=== PATIENT | female | born 1960 | race Caucasian/White ===

== ENCOUNTER 2022-01-22 15:07 | Emergency (ER) | payer OTHER, SELFPAY ==
[2022-01-22 15:15] VITALS: BP 142/66; PULSE 84; RESP 17; TEMP 36.6; O2SAT 96; BMI 24.0
--- NOTE | 2022-01-22 15:20 | DI.RAD.S_ITS ---
PROCEDURE: XR FOOT LT MIN 3V INDICATIONS: fall with foot pain lateral foot, ecchymosis TECHNIQUE: 3 views of the foot were acquired. COMPARISON: None. FINDINGS: Bones: There is a nondisplaced fracture of the base of the 5th metatarsal approximately 1.3 cm from the base. Questionable intra-articular extension. No additional fractures are noted. Joint spaces are maintained. Soft tissues: Soft tissue swelling of the lateral foot. No tibiotalar joint effusion. Achilles tendon appears normal. Small plantar fascial insertional enthesophyte. IMPRESSION: Nondisplaced proximal 5th metatarsal fracture. Dictated by: Akbar Min D.O. on 01/22/2022 at 14:47 Approved by: Akbar Min D.O. on 01/22/2022 at 14:49
--- NOTE | 2022-01-22 15:20 | ED.LOWEXIN ---
HPI - Extremity Injury (Lower) General Chief Complaint: Extremity Injury, Lower Stated Complaint: left foot injury x1 day Time Seen by Provider: 01/22/22 15:16 Source: patient Mode of arrival: Wheelchair History of Present Illness HPI Narrative: 61F nonsmoker with noncontributory medical history presents with a chief complaint of an injury to her left foot suffered yesterday. She was walking on her boat and stepped awkwardly while descending stairs and felt an immediate and significant pain over her left lateral foot. She denies any ankle knee or hip pain. She denies any numbness, tingling or weakness. Her pain is worse with ambulation and improves with rest. She denies any history of the same and is otherwise well and free of complaint. Related Data Home Medications Medication Instructions Recorded Confirmed fluoxetine 10 mg capsule 10 mg PO DAILY 09/20/18 09/20/18 Previous Rx's Medication Instructions Recorded erythromycin 5 mg/gram (0.5 %) eye 1 applic ophthalmic (eye) TID #1 g 09/20/18 ointment Allergies Allergy/AdvReac Type Severity Reaction Status Date / Time No Known Drug Allergies Allergy Verified 10/04/18 09:42 Review of Systems Review of Systems Narrative: GENERAL: Denies chills, fatigue, malaise, fever, sweats. HEENT: Denies sinus pain, ear pain, sore throat, difficulty swallowing, dizziness. RESPIRATORY: Denies dyspnea, cough, wheezing, hemoptysis, sputum. CARDIOVASCULAR: Denies chest pain, palpitations, orthopnea, edema, GASTROINTESTINAL: Denies nausea, vomiting, abdominal pain, diarrhea, constipation, melena. : Denies dysuria, frequency, incontinence, hematuria, urinary retention. MUSCULOSKELETAL:see HPI SKIN: Denies rash, skin lesions, or other NEUROLOGIC: Denies weakness, headache, numbness, change in speech, confusion, seizures, incoordination. PSYCHIATRIC: No concerning psychosocial issues. 12 point review of systems is negative except for those stated above Patient History Social History Smoking Status: Never smoker Smoking Status: Never smoker Substance Use Type: does not use Exam Narrative Exam Narrative: GEN: AOx3 and in mild distress EYES: Pupils are equal, round, and reactive to light and accommodation. Extraoccular muscles are intact bilaterally. There is no subconjunctival hemorrhage or exudate. CHEST: Lungs are clear to auscultation bilaterally and free of wheezes, rales, or rhonchi. Heart rate is regular rhythm, there are no murmurs, clicks, rubs, or gallops. There is no chest wall tenderness. ABD: Abdomen is soft and nontender. There is no guarding or rebound. Bowel sounds are normal in all 4 quadrants. There is no mass or organomegaly. EXT: Pain, swelling and ecchymosis overlying the left 5th metatarsal, no pain or ligamentous laxity at the ankle, no pain at proximal fibula or knee. This is closed, isolated and neurovascularly intact SKIN: Warm, pink, and dry. No erythema or rash Initial Vital Signs Initial Vital Signs: Vital Signs Temperature 97.9 F 01/22/22 15:15 Pulse Rate 84 01/22/22 15:15 Respiratory Rate 17 01/22/22 15:15 Blood Pressure 142/66 H 01/22/22 15:15 Pulse Oximetry 96 01/22/22 15:15 Oxygen Delivery Method 01/22/22 15:15 Procedures Orthopedic Splinting/Casting Injury #1: Side: left Lower Extremity Injury Location: foot Lower Extremity Immobilizer: post-op shoe Post splinting neuro exam: intact Post splinting vascular exam: intact Placed by: Nursing Course Orders Ordered: ED Orders 01/22/22 15:20 XR foot LT min 3V Stat Consultations Consultation #1: discussed with investor relations analyst ortho (Sherrie), we have reviewed the case and she recommends weight bearing as tolerated in fracture shoe or boot with follow up as needed, unlikely to need any specific intervention Vital Signs Vital signs: Vital Signs - 8 hr 01/22/22 15:15 Temperature 97.9 F Pulse Rate 84 Respiratory Rate 17 Blood Pressure 142/66 H Pulse Oximetry 96 Oxygen Delivery Method Room Air Discharge Plan Departure Patient Disposition: Home Clinical Impression: Fracture of 5th metatarsal Qualifiers: Encounter type: initial encounter Fracture type: closed Fracture alignment: nondisplaced Laterality: left Qualified Code(s): S92.355A - Nondisplaced fracture of fifth metatarsal bone, left foot, initial encounter for closed fracture Instructions: DI for Foot Fracture Activity Restrictions/Additional Instructions: *You have been diagnosed with [left fifth metatarsal fracture ] *What to do: *Please continue to take your regular medications as directed. [ ] New medication prescriptions sent to your pharmacy: [ ] [ ] New medication written as a paper prescription [x] Tylenol and occasional Motrin for pain *Please follow up with [Sherrie ] of [facility] in 2-3 days, call for an appointment. Let them know you were seen in the Emergency Department and that we ask that you be seen in follow up. We will electronically transmit a record of today's note if your PCP is in our system *Return to Emergency Department if you should have any new, worsening or concerning symptoms, such as [worsening pain, significant swelling, cold extremities, numbness, tingling, weakness or other bothersome symptoms *Weight bearing as tolerated Prescriptions: No Action fluoxetine 10 mg capsule 10 mg PO DAILY erythromycin 5 mg/gram (0.5 %) ointment 1 applic ophthalmic (eye) TID Qty: 1 0RF Referrals: Tara Balderas MD [Physician] - Visit Report Forms: Patient Portal/API
== END 2022-01-22 15:52 | disposition home or self-care (01) ==
PROVIDERS: Emergency Provider Emergency Medicine
DX: S92.355A Nondisplaced fracture of fifth metatarsal bone, left foot, initial encounter for closed fracture (principal); X50.1XXA Overexertion from prolonged static or awkward postures, initial encounter
CPT/HCPCS: 73630; 99281; 99283

== ENCOUNTER → 2022-08-05 12:28 | Outpatient (CLI) | payer OTHER, SELFPAY ==
[2022-08-05 13:18] LABS: Influenza A - CEPHEID Flu A NEGATIVE (NEGATIVE); Influenza B - CEPHEID Flu B NEGATIVE (NEGATIVE); Respiratory Syncytial Virus Negative (Negative)
[2022-08-05 13:43] LABS: COVID-19 CEPHEID 4-PLEX PCR Negative (Negative)
== END ==
PROVIDERS: Visit Provider Nurse Practitioner Family
DX: R05.9 Cough, unspecified (principal)
CPT/HCPCS: 0241U